=== PATIENT | male | born 1945 | race Caucasian/White ===

== ENCOUNTER 2020-07-02 16:32 | Emergency (ER) | payer OTHER, BC, MEDICARE ==
[~2020-07-02] VITALS: Ht 198.1 cm; Wt 81.6 kg
[2020-07-02] MEDS ORDERED: ATORVASTATIN CA40 MG PO (16:35)
[2020-07-02] MEDS ORDERED: BUTALB-ACETAMI1 EACH PO (16:35)
[2020-07-02] MEDS ORDERED: PRAZOSIN HCL1 MG PO (16:35)
[2020-07-02] MEDS ORDERED: PANTOPRAZOLE SO40 MG PO (16:36)
[2020-07-02] MEDS ORDERED: VITAMIN D325 MCG PO (16:36)
[2020-07-02] MEDS ORDERED: B-121000 MC2 PO (16:36)
[2020-07-02] MEDS ORDERED: ESCITALOPRAM OX20 MG PO (16:36)
[2020-07-02] MEDS ORDERED: VENTOLIN HFA18 GM INH (16:37)
[2020-07-02] MEDS ORDERED: GABAPENTIN400 MG (16:37)
[2020-07-02] MEDS ORDERED: CALCIUM 600 +1 EAC4 PO (16:37)
--- NOTE | 2020-07-03 12:07 | EKG ---
[facility] [address] [facility] [place], [place] [address] Signed Sinus rhythm with premature atrial complexes Otherwise normal ECG No previous ECGs available Confirmed by MELISSA NAJERA DO ([id number]) on 07/03/2020 12:07:35 PM Electronically Signed By: MELISSA NAJERA DO 07/03/20 1207 PATIENT NAME: VU JEWELL Electrocardiogram DATE OF : 45 PHYSICIAN: MELISSA NAJERA DO REPORT #: [id number] REPORT IS CONFIDENTIAL AND NOT TO BE RELEASED WITHOUT AUTHORIZATION
== END 2020-07-02 19:31 | disposition home or self-care (01) ==
LOC: ED 16:32
DX: S02.2XXA Fracture of nasal bones, initial encounter for closed fracture (principal); S00.212A Abrasion of left eyelid and periocular area, initial encounter; W01.198A Fall on same level from slipping, tripping and stumbling with subsequent striking against other object, initial encounter; Z79.899 Other long term (current) drug therapy; Y92.481 Parking lot as the place of occurrence of the external cause
CPT/HCPCS: 70450; 70486; 72125; 93005; 93010; 99284-25